=== PATIENT | male | born 1975 | race Caucasian/White ===

== ENCOUNTER 2016-09-15 18:12 | Emergency (ER) | payer OTHER ==
--- NOTE | ~2016-09-15 | CR173 ---
[facility]. [facility] A Service of [facility] & [facility] RADIOLOGY TEXT RESULTS PATIENT: KAREN WELLINGTON SR LOCATION: SED : 75 UNIT #: [id number] AGE: [address]: MARQUEZ ZHANG SEX: M ORDER DR: [id number] [place] [id number] E MR#: [id number] Acc #: [id number] NAME: KAREN WELLINGTON SR : 1975 SEX: M STUDY DATE/TIME: 09/15/2016 18:48 UNIT: SED ROOM: STUDY DESCRIPTION: CR Knee 3 Views Rt Attending Physician: Marquez Zhang Ordering Physician: Staff Doctor Not On Primary Care Physician: Rip Vasquez M.D. MEDICAL IMAGING REPORT This report is preliminary unless electronic signature is present. EXAM Right knee 3 views HISTORY Tripped and twisted knee today. Knee pain. FINDINGS 3 views of the right knee demonstrates mild arthritic changes of the right knee. No fracture or dislocation. No joint effusion. Soft tissues unremarkable. IMPRESSION Mild degenerative changes right knee. No acute findings. Dictated by... Jae Mckoy M.D. THIS IS AN ELECTRONICALLY VERIFIED REPORT Jae Mckoy M.D. at 09/16/2016 2:08 PM NAFISA/micah TD: 09/16/2016 10:01 JOB #: [id number] MEDICAL IMAGING REPORT
[~2016-09-15 18:12] MED LIST: BENTYL20 MG PO; HYDROCODONE-APA1 T33 PO; JANUMET PO; MED FOR DIABETES; METFORMIN
== END 2016-09-15 19:53 | disposition home or self-care (01) ==
LOC: SED 18:12
DX: S83.91XA Sprain of unspecified site of right knee, initial encounter (principal); R03.0 Elevated blood-pressure reading, without diagnosis of hypertension; E11.9 Type 2 diabetes mellitus without complications; Z88.0 Allergy status to penicillin; Z79.84 Long term (current) use of oral hypoglycemic drugs; Z79.899 Other long term (current) drug therapy; W01.0XXA Fall on same level from slipping, tripping and stumbling without subsequent striking against object, initial encounter; Y92.89 Other specified places as the place of occurrence of the external cause
CPT/HCPCS: 29505; 73562; 99283

== ENCOUNTER → 2016-10-21 | Outpatient (CLI) | payer OTHER ==
--- NOTE | ~2016-10-21 | CR63 ---
[facility] A Service of [facility] & [facility] RADIOLOGY TEXT RESULTS PATIENT: KAREN WELLINGTON SR LOCATION: [facility] : 75 UNIT #: [id number] AGE: [address]: Froilan Ho MD SEX: M ORDER DR: [id number] [facility] [address] [place], [place] [address] [id number] O MR#: [id number] Acc #: [id number] NAME: KAREN WELLINGTON : 1975 SEX: M STUDY DATE/TIME: 10/21/2016 11:52 UNIT: [facility] ROOM: STUDY DESCRIPTION: CR Chest 2 View Attending Physician: Froilan Ho M.D. Referring Physician: Froilan Ho M.D. Ordering Physician: Froilan Ho M.D. Primary Care Physician: Rip Vasquez M.D. MEDICAL IMAGING REPORT This report is preliminary unless electronic signature is present EXAM Two-view chest INDICATIONS Lateral meniscus tear. Presurgical evaluation. Preop assessment of pulmonary function. FINDINGS PA and lateral views of the chest compared to 06/04/2015. Heart mediastinal contours are normal. Lungs are clear. No pleural effusion. IMPRESSION No acute findings. Dictated by... Colt Sanchez M.D. THIS IS AN ELECTRONICALLY VERIFIED REPORT Colt Sanchez M.D. at 10/21/2016 4:31 PM AZUL/tray TD: 10/21/2016 13:39 JOB #: [id number] MEDICAL IMAGING REPORT Page 1 of 1 COPY
[2016-10-21 11:50] LABS: HEMATOCRIT 49.3 % (38.0-50.0); HEMOGLOBIN 17.3 gm/dL (13.0-16.0); MEAN CELL VOLUME 92.1 FL (83-96); MEAN CORPUSCULAR HEMOGLOBIN 32.4 PG (28-34); MEAN CORPUSCULAR HGB CONC 35.1 g/dL (30-36); MEAN PLATELET VOLUME 7.4 FL (6.5-11.5); RED BLOOD COUNT 5.35 X10e (3.90-5.60); RED CELL DISTRIBUTION WIDTH 12.5 % (11.0-15.5); WHITE BLOOD COUNT 8.9 X10e3 (4.0-10.5)
[2016-10-21 12:19] LABS: BUN/CREATININE RATIO 15.55; CALCIUM SERUM 9.4 mg/dL (8.4-10.2); CREATININE SERUM 0.9 mg/dL (0.6-1.4); GLOM FILT RATE Estimated 106.5 mL/min (>60); POTASSIUM 4.3 mmol/L (3.5-5.1)
== END | disposition home or self-care (01) ==
LOC: CRAD 10:59
PROVIDERS: Specialist
DX: Z01.818 Encounter for other preprocedural examination (principal); S83.281A Other tear of lateral meniscus, current injury, right knee, initial encounter
CPT/HCPCS: 36415; 71020; 80048; 83036; 85027